=== PATIENT | female | born 1965 | race Caucasian/White ===

== ENCOUNTER 2019-04-20 11:17 | Emergency (ER) | payer OTHER ==
[~2019-04-20] VITALS: Ht 170.2 cm; Wt 90.7 kg
[~2019-04-20 11:17] MED LIST: ACET500T68 PO; CETI10TA22 PO; ESOM20CA PO; FLUT16SP2 NS; FLUT1DIS IH; IBUP200T44 PO; NORE-83 PO
[2019-04-20 11:20] VITALS: BP 151/84
[2019-04-20] MEDS ORDERED: MELO7.5T29 PO (12:07)
[2019-04-20] MEDS ORDERED: AMOX500T PO (12:07)
[2019-04-20] MEDS ORDERED: D-ME118S2 PO (12:07)
[2019-04-20] MEDS ORDERED: METH4TAB2 PO (12:07)
--- NOTE | 2019-04-20 12:07 | PHYS DOC ---
Past History Past Medical History: Arthritis, Asthma, GERD Past Surgical History: Appendectomy Smoking: Cigarettes, Less than 1pk/day Alcohol Use: None Drug Use: None Adult General Chief Complaint Chief Complaint: OTHER COMPLAINTS HPI HPI Patient is a 54-year-old female presents complaining of sinus pain and pressure. This started over a week ago. She just finished a Z-Tylor and was doing better yesterday however became worse again today. She normally takes steroids when she has sinus infections however she did not choose to take them this time. She reports some subjective fever. Dark nasal congestion. No neck stiffness. No headache but facial pain is present. Denies any neck stiffness. Discomfort is moderate in intensity..[] Review of Systems Review of Systems Constitutional: Denies fever or chills [] Eyes: Denies change in visual acuity, redness, or eye pain [] HENT: See history of present illness[] Respiratory: Denies cough or shortness of breath [] Cardiovascular: No chest pain or palpitations.[] GI: Denies abdominal pain, nausea, vomiting, bloody stools or diarrhea [] : Denies dysuria or hematuria [] Musculoskeletal: Denies back pain or joint pain [] Integument: Denies rash or skin lesions [] Neurologic: Denies headache, focal weakness or sensory changes [] Endocrine: Denies polyuria or polydipsia [] All other systems were reviewed and found to be within normal limits, except as documented in this note. Allergies Allergies Allergies Coded Allergies Type Severity Reaction Last Updated Verified Sulfa (Sulfonamide Antibiotics) Allergy Severe "I couldn't speak or move." 05/21/14 Yes Physical Exam Physical Exam Constitutional: Well developed, well nourished, no acute distress, non-toxic appearance. [] HENT: Normocephalic, atraumatic, bilateral external ears normal, oropharynx moist, no oral exudates, nose normal. Decreased transillumination of the maxillary sinuses. Tenderness to palpation over the maxillary and frontal sinuses.[] Eyes: PERRLA, EOMI, conjunctiva normal, no discharge. [] Neck: Normal range of motion, no tenderness, supple, no stridor. No nuchal rigidity[] Cardiovascular:Heart rate regular rhythm, no murmur [] Lungs & Thorax: Bilateral breath sounds clear to auscultation [] Abdomen: Not examined[] Skin: Warm, dry, no erythema, no rash. [] Back: No tenderness, no CVA tenderness. [] Extremities: No tenderness, no cyanosis, no clubbing, ROM intact, no edema. [] Neurologic: Alert and oriented X 3, normal motor function, normal sensory function, no focal deficits noted. [] Psychologic: Affect normal, judgement normal, mood normal. [] Current Patient Data Vital Signs Vital Signs Date Time Temp Pulse Resp B/P (MAP) Pulse Ox O2 Delivery O2 Flow Rate FiO2 04/20/19 11:20 97.9 72 18 99 Room Air EKG EKG [] Radiology/Procedures Radiology/Procedures [] Course & Med Decision Making Course & Med Decision Making Pertinent Labs and Imaging studies reviewed. (See chart for details) Medical decision making: Patient with sinusitis. Will switch antibiotics and place patient on steroid dosing. No evidence meningitis, encephalitis, nontoxic patient.[] Dragon Disclaimer Dragon Disclaimer This electronic medical record was generated, in whole or in part, using a voice recognition dictation system. Departure Departure: Impression: Primary Impression: Sinusitis Disposition: 01 HOME, SELF-CARE Condition: IMPROVED Referrals: TRAMAINE FOWLER MD (PCP) Follow-up in 2 days Patient Instructions: Sinusitis Additional Instructions: Drink plenty of fluids. Follow-up with your regular doctor in 2 days. Return to the ER if worsening pain, fever of more than 101�, or any other concerns. Scripts Methylprednisolone (MEDROL) 4 Mg Tab.ds.pk 1 PKG PO UD for inflammation, #1 PKG Prov: POLI SAENZ DO 04/20/19 D-Methorphan Hb/Prometh Hcl (PROMETHAZINE-DM SYRUP) 118 Ml Syrup 5 ML PO PRN Q4HRS for CONGESTION, #120 ML Prov: POLI SAENZ DO 04/20/19 Meloxicam (MELOXICAM) 7.5 Mg Tablet 7.5 MG PO DAILY for PAIN, #20 TAB Prov: POLI SAENZ DO 04/20/19 Amoxicillin (AMOXICILLIN) 500 Mg Tablet 500 MG PO TID for sinusitis for 10 Days, #30 TAB Prov: POLI SAENZ DO 04/20/19 Problem Qualifiers Primary Impression: Sinusitis Sinusitis location: unspecified location Chronicity: acute Recurrence: recurrent Qualified Codes: J01.91 - Acute recurrent sinusitis, unspecified POLI SAENZ DO Apr 20, 2019 12:07
== END 2019-04-20 12:10 | disposition home or self-care (01) ==
LOC: ER 11:17
DX: J01.91 Acute recurrent sinusitis, unspecified (principal); J45.909 Unspecified asthma, uncomplicated; K21.9 Gastro-esophageal reflux disease without esophagitis; F17.210 Nicotine dependence, cigarettes, uncomplicated; Z88.2 Allergy status to sulfonamides
CPT/HCPCS: 99283

== ENCOUNTER → 2019-09-03 | Outpatient (CLI) | payer OTHER ==
[~2019-09-03] MED LIST changes: +AMOX500T PO; -CETI10TA22 PO; +CETI10TA24 PO; +MELO7.5T29 PO; +METH4TAB2 PO; +PROM118S9 PO
--- NOTE | 2019-09-03 12:36 | RAD ---
DATE: September 03, 2019 EXAM: MAMMO DEVAN SCREENING BILATERAL HISTORY: Screening study. COMPARISON: 2016 This study was interpreted with the benefit of Computerized Aided Detection (CAD). 2-D digital mammographic views of both breasts were performed in the CC and MLO projections. 3-D digital tomosynthesis images of both breasts were performed in the CC and MLO projections and reviewed on a computer workstation. FINDINGS: Breast Density: FATTY The breast parenchyma is primarily fatty replaced. Breast parenchyma level density A.. There are no dominant suspicious masses, suspicious microcalcifications or evidence of architectural distortion. IMPRESSION: No mammographic indicators for malignancy. BI-RADS CATEGORY: 1 NEGATIVE RECOMMENDED FOLLOW-UP: 12M 12 MONTH FOLLOW-UP PQRS compliance statement: Patient information was entered into a reminder system with a target due date September 04, 2020 for the next mammogram. Mammography is a sensitive method for finding small breast cancers, but it does not detect them all and is not a substitute for careful clinical examination. A negative mammogram does not negate a clinically suspicious finding and should not result in delay in biopsying a clinically suspicious abnormality. "Our facility is accredited by the [employer] Mammography [employer]." The patient's breast density may affect the ability of mammography to detect breast cancer. There are 4 categories of breast density, A, B, C and D. Breast density A means that most of the breast tissue is replaced with adipose tissue and therefore is not dense. Breast density B means that the breast tissue is mildly dense and scattered. Breast density C means that the breast tissue is heterogeneously dense. Breast density D means that the breast tissue is very dense. Breast densities especially C and D may decrease the sensitivity of mammography to detect breast cancer. Therefore, the patient may benefit from 3-D breast mammography (3D breast tomography) as a part of their screening mammogram. Insurance may or may not pay for this additional imaging. The patient's breast density based on today's mammogram is category A.
== END | disposition home or self-care (01) ==
LOC: MAMMO 09:44
PROVIDERS: ATTEND Family Medicine
DX: Z12.31 Encounter for screening mammogram for malignant neoplasm of breast (principal)
CPT/HCPCS: 77063; 77067

== ENCOUNTER 2019-10-20 16:14 | Emergency (ER) | payer OTHER ==
[~2019-10-20] VITALS: Ht 170.2 cm; Wt 90.7 kg
--- NOTE | 2019-10-20 16:43 | PHYS DOC ---
Past History Past Medical History: Arthritis, Asthma, GERD (ALICIA LOGAN DO) Past Medical History: Pneumonia (KOSTAS CASTILLO MD) Past Surgical History: Appendectomy (ALICIA LOGAN DO) Smoking: Cigarettes, Less than 1pk/day Alcohol Use: None Drug Use: None (ALICIA LOGAN DO) Adult General Chief Complaint Chief Complaint: cough, shortness of breath HPI HPI 34-year-old female presents with cough for the last 8-9 weeks. She is also having shortness of breath. She has done a couple of rounds of steroids and at least one round of antibiotics. She feels like her shortness of breath is actually got worse the last 2-3 days. Her was recently diagnosed with bronchitis. This was more than 2 weeks after her symptoms started. The patient is scheduled for a CT of the chest in a couple days, but is concerned she's been getting worse quickly. She denies fever or chills. No history of DVT or PE. (ALICIA LOGAN DO) Review of Systems Review of Systems Constitutional: Denies fever or chills [] Eyes: Denies change in visual acuity, redness, or eye pain [] HENT: Denies nasal congestion or sore throat [] Respiratory: Cough with shortness of breath [] Cardiovascular: No additional information not addressed in HPI [] GI: Denies abdominal pain, nausea, vomiting, bloody stools or diarrhea [] : Denies dysuria or hematuria [] Musculoskeletal: Denies back pain or joint pain [] Integument: Denies rash or skin lesions [] Neurologic: Denies headache, focal weakness or sensory changes [] Endocrine: Denies polyuria or polydipsia [] All other systems were reviewed and found to be within normal limits, except as documented in this note. (ALICIA LOGAN DO) Allergies Allergies Allergies Coded Allergies Type Severity Reaction Last Updated Verified Sulfa (Sulfonamide Antibiotics) Allergy Severe "I couldn't speak or move." 05/21/14 Yes (ALICIA LOGAN DO) Physical Exam Physical Exam Constitutional: Well developed, well nourished, no acute distress, non-toxic appearance. [] HENT: Normocephalic, atraumatic, bilateral external ears normal, oropharynx moist, no oral exudates, nose normal. [] Eyes: PERRLA, EOMI, conjunctiva normal, no discharge. [] Neck: Normal range of motion, no tenderness, supple, no stridor. [] Cardiovascular:Heart rate regular rhythm, no murmur [] Lungs & Thorax: Bilateral breath sounds clear to auscultation [] Abdomen: Bowel sounds normal, soft, no tenderness, no masses, no pulsatile masses. [] Skin: Warm, dry, no erythema, no rash. [] Back: No tenderness, no CVA tenderness. [] Extremities: No tenderness, no cyanosis, no clubbing, ROM intact, no edema. [] Neurologic: Alert and oriented X 3, normal motor function, normal sensory function, no focal deficits noted. [] Psychologic: Affect normal, judgement normal, mood normal. [] (ALICIA LOGAN DO) EKG EKG [] (ALICIA LOGAN DO) Radiology/Procedures Radiology/Procedures [] (ALICIA LOGAN DO) Radiology/Procedures [address] [address] IMAGING REPORT Signed PATIENT: MARCELO LIU ACCOUNT: [id number] : 1965 LOCATION: ER AGE: 54 SEX: F EXAM STATUS: REG ER ORD. PHYSICIAN: ALICIA LOGAN DO REASON: Cough, congestion, short of air, chest pain PROCEDURE: CT ANGIOGRAPHY CHEST CTA Chest with contrast: Clinical History: Cough and congestion and Shortness of breath. Axial helical images of the chest were obtained after the administration of 100 cc of IV Omni 350 and timed appropriately for a pulmonary arterial study. Conventional axial reconstruction was performed in addition to coronal, sagittal and bilateral oblique MIP (maximum intensity projection). This study was ordered to detect possible pulmonary embolism. There are no filling defects to suggest pulmonary embolism. There is patchy nodular opacities throughout the right upper lobe and there is mild diffuse groundglass opacities. There multiple small mediastinal and hilar lymph nodes. The thoracic aorta appears normal. Impression: 1. No evidence of pulmonary embolism. 2. Right-sided infiltrates suggesting early pneumonia. 3. Minimal lymphadenopathy likely reactive. Consider a 6 week follow-up chest x-ray. End impression PQRS Compliance Statement: One or more of the following individualized dose reduction techniques were utilized for this examination: 1. Automated exposure control 2. Adjustment of the mA and/or kV according to patient size 3. Use of iterative reconstruction technique Electronically signed by: Dylon Perez III, MD (10/20/2019 5:43 PM) [facility] (KOSTAS CASTILLO MD) Course & Med Decision Making Course & Med Decision Making Pertinent Labs and Imaging studies reviewed. (See chart for details) The patient's workup is pending. I'm signing the patient out to Dr. Castillo at 1700. [] (ALICIA LOGAN DO) Course & Med Decision Making Pt. will be started on a Zithromax, prednisone and MDI. Patient uses MDI 2 puffs 4 times a day. Prednisone 50 mg a day and Zithromax 250 a day. Patient did have a follow-up chest x-ray in 6 weeks. And ibuprofen for discomfort. Push fluids. Follow-up primary care. Return if any concerns. Impression: 1. Reactive Airway 2. Pneumonia - Rt. side infiltrated and adenopathy (KOSTAS CASTILLO MD) Dragon Disclaimer Dragon Disclaimer This electronic medical record was generated, in whole or in part, using a voice recognition dictation system. (ALICIA LOGAN DO) Departure Departure: Disposition: HOME/RESIDENCE PRIOR TO ADM Condition: STABLE Referrals: TRAMAINE FOWLER MD (PCP) Scripts Azithromycin (ZITHROMAX) 250 Mg Tablet 250 MG PO DAILY for ANTI-BIOTIC for 5 Days, #5 TAB 0 Refills Prov: KOSTAS CASTILLO MD 10/20/19 Prednisone (PREDNISONE) 50 Mg Tablet 50 MG PO DAILY for reactive airway for 5 Days, #5 TAB Prov: KOSTAS CASTILLO MD 10/20/19 ALICIA LOGAN DO Oct 20, 2019 16:43 KOSTAS CASTILLO MD Oct 20, 2019 19:06
[2019-10-20] MEDS ORDERED: IOHEXOL 350 MG/ML 100 ML VIAL. IV ONE (16:45)
[2019-10-20 16:57] VITALS: BP 135/83
[2019-10-20] MEDS ORDERED: CONTRAST GIVEN MC PRN (17:00)
[2019-10-20 17:09] LABS: BASO # 0.1 x10^3/uL (0.0-0.2); BASO % 1 % (0-3); EOS # 0.1 x10^3/uL (0.0-0.7); EOS % 2 % (0-3); HEMATOCRIT 39.7 % (36.0-47.0); LYMPH % 30 % (24-48); MEAN CORPUSCULAR HEMOGLOBIN 29 pg (25-35); MEAN CORPUSCULAR HGB CONC 33 g/dL (31-37); MEAN CORPUSCULAR VOLUME 87 fL (79-100); MONO # 0.8 x10^3/uL (0.0-1.1); MONO % 12 % (0-9); NEUT # 3.7 x10^3uL (1.8-7.7); NEUT % 56 % (31-73); PLATELET COUNT 311 x10^3/uL (140-400); RED BLOOD COUNT 4.58 x10^6/uL (3.50-5.40); RED CELL DISTRIBUTION WIDTH 15.7 % (11.5-14.5); WHITE BLOOD COUNT 6.7 x10^3/uL (4.0-11.0)
[2019-10-20 17:15] LABS: CALCIUM 8.8 mg/dL (8.5-10.1); CREATININE 0.7 mg/dL (0.6-1.0); GFR 87.5; POTASSIUM 4.1 mmol/L (3.5-5.1)
[2019-10-20 17:20] LABS: ALBUMIN 3.5 g/dL (3.4-5.0); ALBUMIN/GLOBULIN RATIO 0.9 (1.0-1.7); TOTAL BILIRUBIN 0.2 mg/dL (0.2-1.0); TOTAL PROTEIN 7.3 g/dL (6.4-8.2)
[2019-10-20 17:24] LABS: INFLUENZA A PATIENT NEGATIVE (NEGATIVE); INFLUENZA B PATIENT NEGATIVE (NEGATIVE)
--- NOTE | 2019-10-20 17:46 | RAD ---
CTA Chest with contrast: Clinical History: Cough and congestion and Shortness of breath. Axial helical images of the chest were obtained after the administration of 100 cc of IV Omni 350 and timed appropriately for a pulmonary arterial study. Conventional axial reconstruction was performed in addition to coronal, sagittal and bilateral oblique MIP (maximum intensity projection). This study was ordered to detect possible pulmonary embolism. There are no filling defects to suggest pulmonary embolism. There is patchy nodular opacities throughout the right upper lobe and there is mild diffuse groundglass opacities. There multiple small mediastinal and hilar lymph nodes. The thoracic aorta appears normal. Impression: 1. No evidence of pulmonary embolism. 2. Right-sided infiltrates suggesting early pneumonia. 3. Minimal lymphadenopathy likely reactive. Consider a 6 week follow-up chest x-ray. End impression PQRS Compliance Statement: One or more of the following individualized dose reduction techniques were utilized for this examination: 1. Automated exposure control 2. Adjustment of the mA and/or kV according to patient size 3. Use of iterative reconstruction technique Electronically signed by: Dylon Perez III, MD (10/20/2019 5:43 PM) [facility]
[2019-10-20] MEDS ORDERED: PRED50TA PO (19:10)
[2019-10-20] MEDS ORDERED: AZIT250T PO (19:10)
[2019-10-20] MEDS ORDERED: cefTRIAXone SODIUM 1 GM VIAL ONE (19:12)
[2019-10-20] MEDS ORDERED: IV NORMAL SALINE 50ML 50 ML ONE (19:12)
[2019-10-20] MEDS ORDERED: predniSONE 10 MG TABLET PO ONE (19:15)
[2019-10-20] MEDS ORDERED: ALBUTEROL SULFATE 8GM INHALER. INH ONE (19:15)
[2019-10-20] MEDS ORDERED: AZITHROMYCIN 250 MG TABLET. PO ONE (19:15)
== END 2019-10-20 19:58 | disposition home or self-care (01) ==
LOC: ER 16:14
DX: J45.909 Unspecified asthma, uncomplicated (principal); J18.9 Pneumonia, unspecified organism; M19.90 Unspecified osteoarthritis, unspecified site; K21.9 Gastro-esophageal reflux disease without esophagitis; F17.210 Nicotine dependence, cigarettes, uncomplicated; Z88.2 Allergy status to sulfonamides
CPT/HCPCS: 36415; 71275; 80053; 85025; 87804; 94640; 96365; 99285; J0456; J0696; J7512; J7613; Q9967

== ENCOUNTER 2021-04-15 11:22 | Emergency (ER) | payer OTHER ==
[~2021-04-15] VITALS: Ht 170.2 cm; Wt 97.7 kg
[~2021-04-15 11:22] MED LIST changes: +AZIT250T PO; -CETI10TA24 PO; +CETI10TA74 PO; +PRED50TA PO; +PROM118S10 PO; -PROM118S9 PO
[2021-04-15 12:04] VITALS: BP 178/97
[2021-04-15 12:16] LABS: BILIRUBIN,URINE NEG (NEG); CLARITY,URINE CLEAR; COLOR,URINE YELLOW; GLUCOSE,URINE NEG (NEG); NITRITE,URINE NEG (NEG); UROBILINOGEN,URINE 0.2 mg/dL (0.2 mg/dL)
[2021-04-15 12:23] LABS: RBC,URINE OCC /HPF (0-2)
[2021-04-15 12:24] LABS: BACTERIA,URINE MOD /HPF (0-FEW); SQUAMOUS EPITHELIAL CELL,UR OCC /LPF
--- NOTE | 2021-04-15 12:27 | PHYS DOC ---
Past History Past Medical History: Pneumonia Past Surgical History: Appendectomy Smoking: Cigarettes, Less than 1pk/day Alcohol Use: None Drug Use: None General Adult EDM: Chief Complaint: PAIN ON URINATION HPI: HPI: 56-year-old female presents with lower abdominal pain and dysuria. She had a bowel movement exam 9 days ago everything was reportedly normal. 3 days ago she started to have lower abdominal pain and some dysuria. She now feels like her urinary stream is partially obstructed. She has intermittent lower abdominal pain that she describes as a cramping sensation with sharp exacerbations. She had a strep urinalysis at urgent care yesterday that was reported to be negative. She presents today because she has a greater feeling of vaginal swelling and more persistent abdominal pain. The pain is moderate in intensity. She denies fever or chills. Review of Systems: Review of Systems: Constitutional: Denies fever or chills Eyes: Denies change in visual acuity HENT: Denies nasal congestion or sore throat Respiratory: Denies cough or shortness of breath Cardiovascular: Denies chest pain or edema GI: Suprapubic abdominal pain. Denies nausea, vomiting, bloody stools or diarrhea : Dysuria Musculoskeletal: Denies back pain or joint pain Integument: Denies rash Neurologic: Denies headache, focal weakness or sensory changes Endocrine: Denies polyuria or polydipsia Lymphatic: Denies swollen glands Psychiatric: Denies depression or anxiety Allergies: Allergies: Allergies Coded Allergies Type Severity Reaction Last Updated Verified Sulfa (Sulfonamide Antibiotics) Allergy Severe "I couldn't speak or move." 05/21/14 Yes Physical Exam: PE: Constitutional: Well developed, well nourished, obese, no acute distress, non- toxic appearance. [] HENT: Normocephalic, atraumatic, bilateral external ears normal, oropharynx moist, no oral exudates, nose normal. [] Eyes: PERRLA, EOMI, conjunctiva normal, no discharge. [] Neck: Normal range of motion, no tenderness, supple, no stridor. [] Cardiovascular:Heart rate regular rhythm, no murmur [] Lungs & Thorax: Bilateral breath sounds clear to auscultation [] Abdomen: Bowel sounds normal, soft, suprapubic tenderness, no masses, no pulsatile masses. [] Skin: Warm, dry, no erythema, no rash. [] Back: No tenderness, no CVA tenderness. [] Extremities: No tenderness, no cyanosis, no clubbing, ROM intact, no edema. [] Neurologic: Alert and oriented X 3, normal motor function, normal sensory function, no focal deficits noted. [] Psychologic: Affect normal, judgement normal, mood normal. : Normal external genitalia, small superficial scratch of the vaginal wall, no significant discharge. No significant pain with exam. Urethra appears within normal limits. [] Current Patient Data: Vital Signs: Vital Signs Date Time Temp Pulse Resp B/P (MAP) Pulse Ox O2 Delivery O2 Flow Rate FiO2 04/15/21 12:04 98.7 82 18 178/97 96 Room Air EKG: EKG: [] Radiology/Procedures: Radiology/Procedures: [] Heart Score: C/O Chest Pain: N/A Risk Factors: Risk Factors: DM, Current or recent (<one month) smoker, HTN, HLP, family history of CAD, obesity. Risk Scores: Score 0 - 3: 2.5% MACE over next 6 weeks - Discharge Home Score 4 - 6: 20.3% MACE over next 6 weeks - Admit for Clinical Observation Score 7 - 10: 72.7% MACE over next 6 weeks - Early Invasive Strategies Course & Med Decision Making: Course & Med Decision Making Pertinent Labs and Imaging studies reviewed. (See chart for details) The patient's labs are unremarkable. Her urinalysis continues to suggest urinary tract infection. Her wet prep is negative. Her vaginal exam was unremarkable. I will place her on Macrobid for [address] of the abdomen and pelvis shows acute diverticulitis. I will treat her with Augmentin for 10 days. We will give the first dose in the ER. She is stable for discharge at this time. [] Dragon Disclaimer: Dragon Disclaimer: This electronic medical record was generated, in whole or in part, using a voice recognition dictation system. Departure Departure: Impression: Primary Impression: Diverticulitis Disposition: HOME / SELF CARE / HOMELESS Condition: STABLE Referrals: TRAMAINE FOWLER MD (PCP) Patient Instructions: Diverticulitis, [id number] Scripts Amoxicillin/Potassium Clav (AUGMENTIN 875-125 TABLET) 1 Each Tablet 1 TAB PO BID for diverticulitis for 10 Days, #20 TAB 0 Refills Prov: ALICIA LOGAN DO 04/15/21 ALICIA LOGAN DO Apr 15, 2021 12:27
[2021-04-15] MEDS ORDERED: IOHEXOL 300 MG/ML 75 ML VIAL. IV ONE (12:30)
[2021-04-15] MEDS ORDERED: CONTRAST GIVEN. MC PRN (12:30)
[2021-04-15 12:47] LABS: BASO # 0.1 x10^3/uL (0.0-0.2); BASO % 1 % (0-3); EOS # 0.2 x10^3/uL (0.0-0.7); EOS % 2 % (0-3); HEMATOCRIT 38.5 % (36.0-47.0); LYMPH # 1.8 x10^3/uL (1.0-4.8); LYMPH % 17 % (24-48); MEAN CORPUSCULAR HEMOGLOBIN 31 pg (25-35); MEAN CORPUSCULAR HGB CONC 34 g/dL (31-37); MEAN CORPUSCULAR VOLUME 91 fL (79-100); MONO # 0.7 x10^3/uL (0.0-1.1); MONO % 7 % (0-9); NEUT # 7.4 x10^3uL (1.8-7.7); NEUT % 73 % (31-73); PLATELET COUNT 274 x10^3/uL (140-400); RED BLOOD COUNT 4.23 x10^6/uL (3.50-5.40); RED CELL DISTRIBUTION WIDTH 13.4 % (11.5-14.5); WHITE BLOOD COUNT 10.2 x10^3/uL (4.0-11.0)
[2021-04-15 12:55] LABS: CALCIUM 8.5 mg/dL (8.5-10.1); CREATININE 0.8 mg/dL (0.6-1.0); GFR 74.5; POTASSIUM 4.1 mmol/L (3.5-5.1)
[2021-04-15] MEDS ORDERED: ONDANSETRON PF 4 MG/2 ML VIAL. IVP ONE (13:00)
[2021-04-15 13:01] LABS: ALBUMIN 3.5 g/dL (3.4-5.0); ALBUMIN/GLOBULIN RATIO 0.9 (1.0-1.7); TOTAL BILIRUBIN 0.5 mg/dL (0.2-1.0); TOTAL PROTEIN 7.3 g/dL (6.4-8.2)
--- NOTE | 2021-04-15 13:09 | RAD ---
Exam: CT abdomen/pelvis with intravenous contrast Indication: Lower abdominal pain Comparison: CT abdomen and pelvis 01/12/2013 Technique: Helical CT imaging performed of the abdomen and pelvis after the intravenous administratio n of intravenous contrast. Sagittal and coronal reformats were obtained. One or more of the following individualized dose reduction techniques were utilized for this examinat ion: 1. Automated exposure control 2. Adjustment of the mA and/or kV according to patient size 3. Use of iterative reconstruction technique. Findings: Lower chest: Lung bases are clear. Heart is normal in size. Liver: The liver is low in attenuation. No focal lesion. Gallbladder/Biliary Tree: Normal. Pancreas: There is a 4 mm hypodensity in the pancreatic body (image 30, series 3), nonspecific. Diffi cult to compare with CT from 01/12/2013 for change due to no IV contrast on that CT. The pancreas is o therwise normal. Spleen: Normal. Adrenal Glands: Normal Kidneys/Ureters/Bladder: Kidneys, ureters, and bladder are normal. Reproductive Organs: Uterus is anteverted. No adnexal mass. Stomach, small bowel, and colon: There are diverticula in the sigmoid colon with wall thickening and pericolonic inflammation consistent with mild diverticulitis. No evidence of perforation or abscess f ormation. The rest of the colon is normal. Stomach and small bowel are unremarkable. Vasculature: No aortic aneurysm. Lymph Nodes: No lymphadenopathy. Peritoneum and retroperitoneum: Fat stranding and trace free fluid in the left lower quadrant related to diverticulitis. No fluid collection or free air. Bones: A 2.4 cm sclerotic lesion in the supra-acetabular left iliac bone is unchanged from 2012 and [facility] [place]. Impression: 1. Acute sigmoid diverticulitis. No evidence of complication. 2. Hepatic steatosis. 3. 4 mm hypodensity in the pancreatic body. This may be small cyst or IPMN. 1 year follow-up CT or M RI of the abdomen could be obtained to ensure stability. Electronically signed by: Elba Stevens MD (04/15/2021 1:07 PM) [id number]
[2021-04-15] MEDS ORDERED: AMOX1TAB61 PO (13:40)
[2021-04-15] MEDS ORDERED: AMOXICILLIN/K CLAV 875/125MG TABLET. PO ONE (13:45)
== END 2021-04-15 14:04 | disposition home or self-care (01) ==
LOC: ER 11:22
DX: K57.92 Diverticulitis of intestine, part unspecified, without perforation or abscess without bleeding (principal); F17.210 Nicotine dependence, cigarettes, uncomplicated; Z90.89 Acquired absence of other organs; Z88.2 Allergy status to sulfonamides
CPT/HCPCS: 36415; 74177; 80053; 81001; 85025; 87086; 87491; 87591; 99285; Q0111; Q9967

== ENCOUNTER 2021-04-27 14:25 | Emergency (ER) | payer OTHER ==
[~2021-04-27] VITALS: Ht 170.2 cm; Wt 97.7 kg
[~2021-04-27 14:25] MED LIST changes: +AMOX1TAB61 PO
[2021-04-27 14:56] VITALS: BP 147/92
[2021-04-27] MEDS ORDERED: IV NORMAL SALINE 1,000ML 1,000 ML IV ONE (15:00)
--- NOTE | 2021-04-27 15:07 | PHYS DOC ---
Past History Past Medical History: Pneumonia Past Surgical History: Appendectomy Smoking: Cigarettes, Less than 1pk/day Alcohol Use: None Drug Use: None General Adult EDM: Chief Complaint: ABDOMINAL PAIN HPI: HPI: Patient is a 56 female who presented to ER for evaluation of abdominal pain. Patient was diagnosed with diverticulitis on April 15, she was prescribed Augmentin twice a day for 10 days. Patient finished the antibiotic, start feeling bad again, having abdominal pain with some nausea but no diarrhea, no vomiting. Patient denies any chest pain, no cough, no fever, no trouble breathing. Patient says she had diarrhea last week and then the last three days she became constipated. Review of Systems: Review of Systems: Constitutional: Denies fever or chills Eyes: Denies change in visual acuity HENT: Denies nasal congestion or sore throat Respiratory: Denies cough or shortness of breath Cardiovascular: Denies chest pain or edema GI: Positive for abdominal pain, nausea, no diarrhea, no vomiting. : Denies dysuria Musculoskeletal: Denies back pain or joint pain Integument: Denies rash Neurologic: Denies headache, focal weakness or sensory changes Endocrine: Denies polyuria or polydipsia Lymphatic: Denies swollen glands Psychiatric: Denies depression or anxiety Current Medications: Current Meds: Current Medications Medications (Trade) Dose Ordered Sig/Emma Start Time Stop Time Status Last Admin Dose Admin Sodium Chloride 1,000 ml @ 1,000 mls/hr 1X ONCE 04/27/21 15:00 04/27/21 15:59 UNV Allergies: Allergies: Allergies Coded Allergies Type Severity Reaction Last Updated Verified Sulfa (Sulfonamide Antibiotics) Allergy Severe "I couldn't speak or move." 05/21/14 Yes Physical Exam: PE: Constitutional: Well developed, well nourished, no acute distress, non-toxic appearance. [] HENT: Normocephalic, atraumatic, bilateral external ears normal, oropharynx moist, no oral exudates, nose normal. [] Eyes: PERRLA, EOMI, conjunctiva normal, no discharge. [] Neck: Normal range of motion, no tenderness, supple, no stridor. [] Cardiovascular:Heart rate regular rhythm, no murmur [] Lungs & Thorax: Bilateral breath sounds clear to auscultation [] Abdomen: Bowel sounds normal, soft,THERE IS tenderness TO PALPATION AT LLQ AND SUPRAPUBIC AREA, no masses, no pulsatile masses. [] Skin: Warm, dry, no erythema, no rash. [] Back: No tenderness, no CVA tenderness. [] Extremities: No tenderness, no cyanosis, no clubbing, ROM intact, no edema. [] Neurologic: Alert and oriented X 3, normal motor function, normal sensory function, no focal deficits noted. [] Psychologic: Affect normal, judgement normal, mood normal. [] Current Patient Data: Labs: Laboratory Tests Test 04/27/21 14:54 White Blood Count 8.6 x10^3/uL Red Blood Count 4.55 x10^6/uL Hemoglobin 13.9 g/dL Hematocrit 41.0 % Mean Corpuscular Volume 90 fL Mean Corpuscular Hemoglobin 31 pg Mean Corpuscular Hemoglobin Concent 34 g/dL Red Cell Distribution Width 13.3 % Platelet Count 334 x10^3/uL Neutrophils (%) (Auto) 49 % Lymphocytes (%) (Auto) 43 % Monocytes (%) (Auto) 5 % Eosinophils (%) (Auto) 3 % Basophils (%) (Auto) 1 % Neutrophils # (Auto) 4.2 x10^3uL Lymphocytes # (Auto) 3.7 x10^3/uL Monocytes # (Auto) 0.4 x10^3/uL Eosinophils # (Auto) 0.2 x10^3/uL Basophils # (Auto) 0.1 x10^3/uL Sodium Level 140 mmol/L Potassium Level 4.1 mmol/L Chloride Level 102 mmol/L Carbon Dioxide Level 29 mmol/L Anion Gap 9 Blood Urea Nitrogen 11 mg/dL Creatinine 0.8 mg/dL Estimated GFR (Cockcroft-Gault) 74.5 BUN/Creatinine Ratio 14 Glucose Level 101 mg/dL Calcium Level 9.3 mg/dL Total Bilirubin 0.3 mg/dL Aspartate Amino Transf (AST/SGOT) 24 U/L Alanine Aminotransferase (ALT/SGPT) 35 U/L Alkaline Phosphatase 84 U/L Total Protein 8.0 g/dL Albumin 4.1 g/dL Albumin/Globulin Ratio 1.1 Lipase 142 U/L Current Medications Medications (Trade) Dose Ordered Sig/Emma Route PRN Reason Start Time Stop Time Status Last Admin Dose Admin Sodium Chloride 1,000 ml @ 1,000 mls/hr 1X ONCE IV 04/27/21 15:00 04/27/21 15:59 DC Iohexol (Omnipaque 300 Mg/ml) 75 ml 1X ONCE IV 04/27/21 15:45 04/27/21 15:49 DC 04/27/21 15:55 Info (Do NOT chart on this entry -- for MONITORING) 1 each PRN DAILY PRN MC SEE COMMENTS 04/27/21 16:00 04/29/21 15:59 EKG: EKG: [] Radiology/Procedures: Radiology/Procedures: [][address] [address] IMAGING REPORT Signed PATIENT: MARCELO LIU ACCOUNT: [id number] : 1965 LOCATION: ER AGE: 56 SEX: F EXAM STATUS: REG ER ORD. PHYSICIAN: ARIE HARVEY DO REASON: ABDOMINAL PAIN PROCEDURE: CT ABD PELV W/ IV CONTRST ONLY Exam: CT of abdomen and pelvis with contrast INDICATION: Abdominal pain TECHNIQUE: Sequential axial images through the abdomen and pelvis obtained following the administration of 74 mL of Isovue-370 IV contrast. Sagittal and coronal reformatted images were reconstructed from the axial data and reviewed. Exposure: One or more of the following in the visualized dose reduction techniques were utilized for this examination: 1. Automated exposure control 2. Adjustment of the MA and/or KV according to patient size 3. Use of iterative of reconstructive technique Comparisons: 04/15/2021 FINDINGS: Heart size is normal. No pericardial effusion. Visualized lung bases are clear. No pleural effusion. Liver, spleen, pancreas, gallbladder and adrenals are unremarkable. No perinephric inflammation or hydronephrosis. No renal or ureteral calculi are identified. Bladder is partially distended and not well evaluated. Uterus is nonenlarged. No abnormal adnexal mass. There is minimal adjacent stranding at the sigmoid colon at the previously identified area of acute diverticulitis. The previously seen wall thickening is probably resolved. Large and small bowel are unremarkable. Appendix is nonidentified. No free intra-abdominal air or fluid. No obstruction. Abdominal aorta has a normal course and caliber. Abdominal vasculature is patent. No enlarged intra-abdominal lymph nodes are identified. No suspicious osseous lesions or acute fractures. IMPRESSION: Near complete resolution of inflammation at the sigmoid colon previously identified is acute diverticulitis. Electronically signed by: Malina Valera MD (04/27/2021 4:23 PM) [facility] DICTATED AND SIGNED BY: MALINA VALERA MD DATE: 04/27/21 1613 CC: TRAMAINE FOWLER MD; ARIE HARVEY DO ~MTH0 0 Heart Score: C/O Chest Pain: N/A Risk Factors: Risk Factors: DM, Current or recent (<one month) smoker, HTN, HLP, family history of CAD, obesity. Risk Scores: Score 0 - 3: 2.5% MACE over next 6 weeks - Discharge Home Score 4 - 6: 20.3% MACE over next 6 weeks - Admit for Clinical Observation Score 7 - 10: 72.7% MACE over next 6 weeks - Early Invasive Strategies Course & Med Decision Making: Course & Med Decision Making Pertinent Labs and Imaging studies reviewed. (See chart for details) Patient is a 56-year-old female who presented to ER due to abdominal pain constipation. Patient is currently being treated for diverticulitis, CT scan her abdomen pelvic show near complete resolution of the inflammation. We will send her home with 5 more days of Augmentin Dragon Disclaimer: Dragon Disclaimer: This electronic medical record was generated, in whole or in part, using a voice recognition dictation system. Departure Departure: Impression: Primary Impression: Abdominal pain Additional Impression: Constipation Disposition: HOME / SELF CARE / HOMELESS Condition: STABLE Referrals: TRAMAINE FOWLER MD (PCP) Follow up with your doctor this week Patient Instructions: Abdominal Pain, Constipation, Adult Additional Instructions: Thank you for visiting our Emergency Department. We appreciate you trusting us with your care. If any additional problems come up don't hesitate to return to visit us. Please follow up with your primary care provider so they can plan additional care if needed and know about the problem that you had. If symptoms worsen come back to the Emergency Department. Any concerning symptoms that start such as chest pain, shortness of air, weakness or numbness on one side of the body, running high fevers or any other concerning symptoms return to the ER. Scripts Amoxicillin/Potassium Clav (AUGMENTIN 875-125 TABLET) 1 Each Tablet 1 TAB PO BID for diverticulitis for 5 Days, #10 TAB 0 Refills Prov: ARIE HARVEY DO 04/27/21 ARIE HARVEY DO Apr 27, 2021 15:07
[2021-04-27 15:25] LABS: BASO # 0.1 x10^3/uL (0.0-0.2); BASO % 1 % (0-3); EOS # 0.2 x10^3/uL (0.0-0.7); EOS % 3 % (0-3); HEMOGLOBIN 13.9 g/dL (12.0-15.5); LYMPH # 3.7 x10^3/uL (1.0-4.8); LYMPH % 43 % (24-48); MEAN CORPUSCULAR HEMOGLOBIN 31 pg (25-35); MEAN CORPUSCULAR HGB CONC 34 g/dL (31-37); MEAN CORPUSCULAR VOLUME 90 fL (79-100); MONO # 0.4 x10^3/uL (0.0-1.1); MONO % 5 % (0-9); NEUT # 4.2 x10^3uL (1.8-7.7); NEUT % 49 % (31-73); PLATELET COUNT 334 x10^3/uL (140-400); RED BLOOD COUNT 4.55 x10^6/uL (3.50-5.40); RED CELL DISTRIBUTION WIDTH 13.3 % (11.5-14.5); WHITE BLOOD COUNT 8.6 x10^3/uL (4.0-11.0)
[2021-04-27 15:35] LABS: CALCIUM 9.3 mg/dL (8.5-10.1); CREATININE 0.8 mg/dL (0.6-1.0); GFR 74.5; POTASSIUM 4.1 mmol/L (3.5-5.1)
[2021-04-27 15:40] LABS: ALBUMIN 4.1 g/dL (3.4-5.0); ALBUMIN/GLOBULIN RATIO 1.1 (1.0-1.7); TOTAL BILIRUBIN 0.3 mg/dL (0.2-1.0)
[2021-04-27] MEDS ORDERED: IOHEXOL 300 MG/ML 75 ML VIAL. IV ONE (15:45)
[2021-04-27] MEDS ORDERED: CONTRAST GIVEN. MC PRN (16:00)
--- NOTE | 2021-04-27 16:25 | RAD ---
Exam: CT of abdomen and pelvis with contrast INDICATION: Abdominal pain TECHNIQUE: Sequential axial images through the abdomen and pelvis obtained following the administrati on of 74 mL of Isovue-370 IV contrast. Sagittal and coronal reformatted images were reconstructed fro m the axial data and reviewed. Exposure: One or more of the following in the visualized dose reduction techniques were utilized for this examination: 1. Automated exposure control 2. Adjustment of the MA and/or KV according to patient size 3. Use of iterative of reconstructive technique Comparisons: 04/15/2021 FINDINGS: Heart size is normal. No pericardial effusion. Visualized lung bases are clear. No pleural effusion. Liver, spleen, pancreas, gallbladder and adrenals are unremarkable. No perinephric inflammation or hydronephrosis. No renal or ureteral calculi are identified. Bladder is partially distended and not well evaluated. Uterus is nonenlarged. No abnormal adnexal mas s. There is minimal adjacent stranding at the sigmoid colon at the previously identified area of acute d iverticulitis. The previously seen wall thickening is probably resolved. Large and small bowel are un remarkable. Appendix is nonidentified. No free intra-abdominal air or fluid. No obstruction. Abdominal aorta has a normal course and caliber. Abdominal vasculature is patent. No enlarged intra-abdominal lymph nodes are identified. No suspicious osseous lesions or acute fractures. IMPRESSION: Near complete resolution of inflammation at the sigmoid colon previously identified is acute divertic ulitis. Electronically signed by: Malina Cheng MD (04/27/2021 4:23 PM) [facility]
[2021-04-27] MEDS ORDERED: AMOX1TAB61 PO (17:35)
--- NOTE | 2021-04-27 17:38 | EKG ---
[address] [address] Test Date: 2021-04-27 Test Time: 16:14:38 Pat Name: MARCELO LIU Department: Room: Gender: F Freight Clerk: RAMESH : 1965 Requested By: ARIE HARVEY Order Number: [id number] Reading MD: Measurements Intervals [place] Rate: 64 P: 31 DC: 198 QRS: 29 QRSD: 96 T: 1 QT: 406 QTc: 423 Interpretive Statements SINUS RHYTHM QRS(T) CONTOUR ABNORMALITY CONSIDER ANTEROSEPTAL MYOCARDIAL DAMAGE POSSIBLY ABNORMAL ECG RI6.02 No previous ECG available for comparison
== END 2021-04-27 17:40 | disposition home or self-care (01) ==
LOC: ER 14:25
DX: K59.00 Constipation, unspecified (principal); F17.210 Nicotine dependence, cigarettes, uncomplicated; Z90.89 Acquired absence of other organs; Z88.2 Allergy status to sulfonamides
CPT/HCPCS: 36415; 74177; 80053; 83690; 85025; 93005; 99285; Q9967